=== PATIENT | female | born 2000 | race Hispanic/Latino ===

== ENCOUNTER 2023-04-21 00:40 | Emergency (ER) | payer SELFPAY ==
[2023-04-21 01:03] LABS: #Basophils 0.1 thou/uL (0.0-0.2); #Eosinphils 0.2 thou/uL (0.0-0.7); #Monocytes 0.9 thou/uL (0.11-0.59); #Neutrophils 6.8 thou/uL (1.40-6.50); %Basophils 0.8 % (0.0-1.0); %Eosinophils 1.7 % (0.0-10.0); %Monocytes 8.1 % (0.0-10.0); Hematocrit 42.4 % (36.0-47.0); Hemoglobin 13.7 g/dL (12.0-16.0); Mean Corpuscular HGB CONC 32.3 g/dL (32.0-36.0); Mean Corpuscular Hemoglobin 27.2 pg (27.0-31.0); Mean Corpuscular Volume 84.1 fl (78.0-98.0); Platelet Count 431 10x3/uL (130-400); RBC Distribution Width 13.6 % (11.5-14.5); Red Blood Cell (RBC) Count 5.04 mill/uL (4.20-5.40); White Blood Cell (WBC) Count 11.2 10x3/uL (4.8-10.8)
[2023-04-21] MEDS ORDERED: Ketorolac Tromethamine 30 MG/ML VIAL ONE (01:20)
[2023-04-21] MEDS ORDERED: Ondansetron PF 4 MG/2 ML Vial ONE (01:21)
[2023-04-21 01:25] LABS: ALT (SGPT) 18 U/L (8-55); AST (SGOT) 16 U/L (5-34); Albumin 4.9 g/dL (3.5-5.0); Alkaline Phosphatase 63 U/L (40-110); Anion Gap 14 mmol/L (10-20); BUN (Urea Nitrogen) 7 mg/dL (7.0-18.7); Bilirubin, Total 0.5 mg/dL (0.2-1.2); Calc. Creatinine Clearance 0 mL/min (70-130); Calcium 9.9 mg/dL (7.8-10.44); Carbon Dioxide 22 mmol/L (22-29); Chloride 107 mmol/L (98-107); Estimated GFR 115; Globulin 3.1 g/dL (2.4-3.5); Glucose 88 mg/dL (70-105); Lipase 61 U/L (8-78); Potassium 4.3 mmol/L (3.5-5.1); Sodium 139 mmol/L (136-145)
[2023-04-21 01:28] LABS: BHCG - Serum Negative (NEGATIVE); Pregs Control Background? CLEAR/WHITE (CLR/WHITE); Pregs Control Bar Appear? YES (CONTROL BAR)
[2023-04-21 01:40] LABS: Troponin I Less than 0.010 ng/mL (< 0.028)
[2023-04-21 02:18] LABS: Bacteria/HPF None Seen HPF (None Seen); Bilirubin Negative (Negative); Blood, Urine 1+ (Negative); CAUTI Indications for Culture Dysuria,urgency,freq; Clarity Turbid (Clear); Glucose, Urine (Dipstick) Normal (Negative); Ketone, Urine Negative (Negative); Leukocyte 500 Leu/uL (Negative); Nitrite Negative (Negative); Protein, Urine (Dipstick) Negative (Neg-Trace); Specific Gravity, Urine 1.011 (1.002-1.036); Urobilinogen Normal mg/dL (Less than 2); WBC/HPF Greater than 50 HPF (0-3); pH, Urine 7.5 (5.0-9.0)
[2023-04-21 02:20] LABS: Urine Culture Reflex Yes Yes
[2023-04-21] MEDS ORDERED: cefTRIAXone (ROCEPHIN) 1 GM VIAL ONE (02:36)
== END 2023-04-21 03:23 | disposition home or self-care (01) ==
LOC: ERS 00:40
DX: N39.0 Urinary tract infection, site not specified (principal); K80.20 Calculus of gallbladder without cholecystitis without obstruction
CPT/HCPCS: 76705; 80053; 81001; 83690; 84484; 84703; 85025; 87086; 93005; 96365; 96375; J0696; J1885; J2405

== ENCOUNTER 2023-05-13 17:50 | Inpatient (IN) | payer SELFPAY ==
[2023-05-13 18:40] LABS: Bacteria/HPF 2+ HPF (None Seen); Bilirubin Negative (Negative); Blood, Urine 1+ (Negative); CAUTI Indications for Culture Dysuria,urgency,freq; Clarity Turbid (Clear); Glucose, Urine (Dipstick) Normal (Negative); Ketone, Urine Negative (Negative); Leukocyte 75 Leu/uL (Negative); Nitrite Negative (Negative); Protein, Urine (Dipstick) 20 mg/dL (Neg-Trace); Specific Gravity, Urine 1.017 (1.002-1.036); Urobilinogen Normal mg/dL (Less than 2)
[2023-05-13] MEDS ORDERED: Ondansetron PF 4 MG/2 ML Vial ONE (18:40)
[2023-05-13 18:41] LABS: Urine Culture Reflex Yes Yes
[2023-05-13 19:00] LABS: #Basophils 0.1 thou/uL (0.0-0.2); #Eosinphils 0.1 thou/uL (0.0-0.7); #Monocytes 0.6 thou/uL (0.11-0.59); #Neutrophils 9.7 thou/uL (1.40-6.50); %Basophils 0.6 % (0.0-1.0); %Eosinophils 0.6 % (0.0-10.0); %Lymphocytes 14.1 % (21.0-51.0); %Monocytes 4.7 % (0.0-10.0); %Neutrophils 79.5 % (42.0-75.0); Hematocrit 41.5 % (36.0-47.0); Hemoglobin 13.2 g/dL (12.0-16.0); Mean Corpuscular HGB CONC 31.8 g/dL (32.0-36.0); Mean Corpuscular Hemoglobin 26.8 pg (27.0-31.0); Mean Corpuscular Volume 84.3 fl (78.0-98.0); Platelet Count 460 10x3/uL (130-400); RBC Distribution Width 13.3 % (11.5-14.5); Red Blood Cell (RBC) Count 4.92 mill/uL (4.20-5.40); White Blood Cell (WBC) Count 12.2 10x3/uL (4.8-10.8)
[2023-05-13 19:08] LABS: BHCG - Serum Negative (NEGATIVE); Pregs Control Background? CLEAR/WHITE (CLR/WHITE); Pregs Control Bar Appear? YES (CONTROL BAR)
[2023-05-13 19:28] LABS: ALT (SGPT) 67 U/L (8-55); AST (SGOT) 105 U/L (5-34); Albumin 4.5 g/dL (3.5-5.0); Alkaline Phosphatase 73 U/L (40-110); Anion Gap 11 mmol/L (10-20); BUN (Urea Nitrogen) 9 mg/dL (7.0-18.7); Bilirubin, Total 1.4 mg/dL (0.2-1.2); Calc. Creatinine Clearance 0 mL/min (70-130); Calcium 9.4 mg/dL (7.8-10.44); Carbon Dioxide 26 mmol/L (22-29); Chloride 106 mmol/L (98-107); Estimated GFR 112; Globulin 3.2 g/dL (2.4-3.5); Glucose 82 mg/dL (70-105); Lipase 9 U/L (8-78); Protein, Total 7.7 g/dL (6.0-8.3); Sodium 139 mmol/L (136-145)
[2023-05-13 19:56] LABS: SARS-CoV-2 NAA Rapid Test Not Detected (NotDetected)
[2023-05-13] MEDS ORDERED: Sodium Chloride 0.9% 100 ML ONE (19:59)
[2023-05-13] MEDS ORDERED: Piperacillin/Tazobactam 3.375 GM VIAL ONE (20:00)
[2023-05-13] MEDS ORDERED: Ondansetron PF 4 MG/2 ML Vial IVP PRN (20:15)
[2023-05-13] MEDS ORDERED: Sodium Chloride 0.9% 1,000 ML IV SCH (20:15)
[2023-05-13] MEDS ORDERED: Ondansetron ODT 4 MG TAB SL PRN (20:15)
[2023-05-13] MEDS ORDERED: traMADol HCl 50 MG TAB PO PRN (21:20)
[2023-05-13] MEDS: Morphine 4 MG/ML VIAL SLOW IVP PRN (21:45)
[2023-05-13] MEDS: Lactated Ringer's 1,000 ML IV SCH (21:46)
[2023-05-13] MEDS: Acetaminophen 500 MG TAB PO SCH (21:48)
[2023-05-14] MEDS: traMADol HCl 50 MG TAB PO SCH ×5 (00:38→23:42)
[2023-05-14 02:37] VITALS: BMI 35.9
[2023-05-14] MEDS: Acetaminophen 500 MG TAB PO SCH ×4 (03:39→22:14)
[2023-05-14 05:24] LABS: #Basophils 0.1 thou/uL (0.0-0.2); #Eosinphils 0.2 thou/uL (0.0-0.7); #Monocytes 1.1 thou/uL (0.11-0.59); #Neutrophils 6.4 thou/uL (1.40-6.50); %Basophils 0.8 % (0.0-1.0); %Eosinophils 1.8 % (0.0-10.0); %Lymphocytes 24.4 % (21.0-51.0); %Monocytes 10.8 % (0.0-10.0); %Neutrophils 61.7 % (42.0-75.0); Hematocrit 39.6 % (36.0-47.0); Hemoglobin 12.6 g/dL (12.0-16.0); Mean Corpuscular HGB CONC 31.8 g/dL (32.0-36.0); Mean Platelet Volume 10.2 fL (7.4-10.4); Platelet Count 416 10x3/uL (130-400); RBC Distribution Width 13.3 % (11.5-14.5); Red Blood Cell (RBC) Count 4.66 mill/uL (4.20-5.40); White Blood Cell (WBC) Count 10.4 10x3/uL (4.8-10.8)
[2023-05-14] MEDS: Morphine 4 MG/ML VIAL SLOW IVP PRN ×4 (05:33→20:41)
[2023-05-14 05:48] LABS: ALT (SGPT) 127 U/L (8-55); AST (SGOT) 143 U/L (5-34); Albumin 3.6 g/dL (3.5-5.0); Alkaline Phosphatase 66 U/L (40-110); Anion Gap 13 mmol/L (10-20); BUN (Urea Nitrogen) 7 mg/dL (7.0-18.7); Bilirubin, Direct 0.9 mg/dL (0.1-0.3); Calc. Creatinine Clearance 192 mL/min (70-130); Calcium 8.5 mg/dL (7.8-10.44); Carbon Dioxide 25 mmol/L (22-29); Chloride 106 mmol/L (98-107); Estimated GFR 119; Glucose 82 mg/dL (70-105); Potassium 3.5 mmol/L (3.5-5.1); Protein, Total 6.4 g/dL (6.0-8.3); Sodium 140 mmol/L (136-145)
[2023-05-14] MEDS: Lactated Ringer's 1,000 ML IV SCH (06:37)
[2023-05-14] MEDS ORDERED: Ondansetron PF 4 MG/2 ML Vial ONE (07:15)
[2023-05-14] MEDS ORDERED: Dexamethasone 4 mg/ml Vial ONE (07:15)
[2023-05-14] MEDS ORDERED: Rocuronium Bromide 10 MG/ML (10ML VIAL) ONE ×2 (07:15→07:58)
[2023-05-14] MEDS ORDERED: PROPOFOL 40 ML ONE (07:15)
[2023-05-14] MEDS ORDERED: Fentanyl 250 MCG/5 ML VIAL ONE (07:15)
[2023-05-14] MEDS ORDERED: Lidocaine 2% PF 5 ML VIAL ONE (07:15)
[2023-05-14] MEDS ORDERED: Midazolam HCl 2 mg/2 ml Vial ONE (07:15)
[2023-05-14] MEDS ORDERED: diphenhydrAMINE 50 MG/ML VIAL ONE ×2 (07:43→07:58)
[2023-05-14] MEDS ORDERED: CEFAZOLIN 2 GM VIAL ONE (07:47)
[2023-05-14] MEDS ORDERED: Sodium Chloride 0.9% 100 ML ONE (07:48)
[2023-05-14] MEDS ORDERED: Bupivacaine 0.25% HCL 30 ML VIAL ONE (07:56)
[2023-05-14] MEDS ORDERED: Iopamidol 30 ML ONE (07:56)
[2023-05-14] MEDS ORDERED: EPINEPHrine 1 MG/ML VIAL ONE (07:56)
[2023-05-14] MEDS ORDERED: PROPOFOL 200 MG/20 ML VIAL ONE (07:58)
[2023-05-14] MEDS ORDERED: Lidocaine 1% PF 5 ML VIAL ONE (07:58)
[2023-05-14] MEDS ORDERED: Promethazine HCl 25 MG/ML VIAL IM PRN (09:04)
[2023-05-14] MEDS ORDERED: Ondansetron HCl/PF 4 MG/2 ML Vial IVP PRN (09:04)
[2023-05-14] MEDS ORDERED: HYDROmorphone 2 MG/ML VIAL SLOW IVP PRN (09:04)
[2023-05-14] MEDS ORDERED: Acetaminophen/Codeine 30-300mg Tablet PO PRN ×2 (09:42→13:22)
[2023-05-14] MEDS ORDERED: fentaNYL 50 mcg/mL 1 mL Vial ONE (09:55)
[2023-05-14] MEDS ORDERED: HYDROmorphone 0.5 MG/0.5 ML SYRINGE ONE (10:21)
[2023-05-14] MEDS ORDERED: Piperacillin/Tazobactam 3.375 GM in Sodium Chloride 0.9% 100 ML IVPB SCH (12:00)
[2023-05-14] MEDS: Piperacillin/Tazobactam 3.375 GM in Sodium Chloride 0.9% 100 ML IVPB SCH ×2 (12:40→20:16)
[2023-05-14] MEDS ORDERED: Ondansetron PF 4 MG/2 ML Vial IVP PRN (20:40)
[2023-05-15] MEDS: Morphine 4 MG/ML VIAL SLOW IVP PRN ×3 (01:10→10:17)
[2023-05-15 03:47] LABS: #Eosinphils 0.1 thou/uL (0.0-0.7); #Monocytes 1.4 thou/uL (0.11-0.59); #Neutrophils 14.3 thou/uL (1.40-6.50); %Basophils 0.2 % (0.0-1.0); %Eosinophils 0.5 % (0.0-10.0); %Lymphocytes 12.7 % (21.0-51.0); %Monocytes 7.7 % (0.0-10.0); %Neutrophils 78.6 % (42.0-75.0); Hematocrit 37.7 % (36.0-47.0); Mean Corpuscular HGB CONC 31.8 g/dL (32.0-36.0); Mean Corpuscular Hemoglobin 26.8 pg (27.0-31.0); Mean Corpuscular Volume 84.2 fl (78.0-98.0); Mean Platelet Volume 10.1 fL (7.4-10.4); Platelet Count 413 10x3/uL (130-400); RBC Distribution Width 13.4 % (11.5-14.5); Red Blood Cell (RBC) Count 4.48 mill/uL (4.20-5.40); White Blood Cell (WBC) Count 18.1 10x3/uL (4.8-10.8)
[2023-05-15 04:14] LABS: ALT (SGPT) 170 U/L (8-55); AST (SGOT) 92 U/L (5-34); Albumin 3.9 g/dL (3.5-5.0); Alkaline Phosphatase 75 U/L (40-110); Anion Gap 11 mmol/L (10-20); BUN (Urea Nitrogen) 5 mg/dL (7.0-18.7); Bilirubin, Direct 0.5 mg/dL (0.1-0.3); Bilirubin, Total 1.5 mg/dL (0.2-1.2); Calc. Creatinine Clearance 180 mL/min (70-130); Calcium 9.1 mg/dL (7.8-10.44); Carbon Dioxide 25 mmol/L (22-29); Chloride 105 mmol/L (98-107); Estimated GFR 110; Globulin 2.9 g/dL (2.4-3.5); Glucose 90 mg/dL (70-105); Potassium 3.8 mmol/L (3.5-5.1); Protein, Total 6.8 g/dL (6.0-8.3); Sodium 137 mmol/L (136-145)
[2023-05-15] MEDS: Piperacillin/Tazobactam 3.375 GM in Sodium Chloride 0.9% 100 ML IVPB SCH (05:22)
[2023-05-15] MEDS: Acetaminophen 500 MG TAB PO SCH ×2 (05:22→10:18)
[2023-05-15] MEDS: traMADol HCl 50 MG TAB PO SCH (06:45)
[2023-05-15 08:32] VITALS: BP 110/70; TEMP 98.3
[2023-05-15] MEDS ORDERED: Acetaminophen/Codeine 30-300mg Tablet PO PRN (10:44)
[2023-05-15] MEDS ORDERED: Acetaminophen 325 MG TAB PO SCH (12:00)
== END 2023-05-15 12:30 | disposition home or self-care (01) | DRG 418 ==
LOC: ERS 17:50 → MSONC 19:57 → OBSVTOIN 05-14 16:45
PROVIDERS: ADMIT Student in an Organized Health Care Education/Training Program; ATTEND Student in an Organized Health Care Education/Training Program
PROC: 0FT44ZZ Resection of Gallbladder, Percutaneous Endoscopic Approach (ICD-10-PCS; principal; 2023-05-14)
PROC: BF101ZZ Fluoroscopy of Bile Ducts using Low Osmolar Contrast (ICD-10-PCS; 2023-05-14)
DX: K80.00 Calculus of gallbladder with acute cholecystitis without obstruction (principal); R65.10 Systemic inflammatory response syndrome (SIRS) of non-infectious origin without acute organ dysfunction; R11.0 Nausea; Z11.52 Encounter for screening for COVID-19
CPT/HCPCS: 36415; 47532; 76705; 80048; 80053; 80076; 81001; 83690; 84703; 85025; 86850; 86900; 86901; 87086; 88304; 96361; 96365; 96375; 96376; C1889; G0378; J0171; J1100; J1170; J1200; J2001; J2250; J2270; J2405; J2543; J2704; J3010; J3490; J7120; Q0162; Q9967; S0020

== ENCOUNTER 2023-07-17 11:28 | Emergency (ER) | payer SELFPAY ==
[2023-07-17 12:20] LABS: #Basophils 0.1 thou/uL (0.0-0.2); #Eosinphils 0.4 thou/uL (0.0-0.7); #Monocytes 0.8 thou/uL (0.11-0.59); #Neutrophils 12.8 thou/uL (1.40-6.50); %Basophils 0.7 % (0.0-1.0); %Eosinophils 2.2 % (0.0-10.0); %Monocytes 4.9 % (0.0-10.0); %Neutrophils 77.8 % (42.0-75.0); Hematocrit 39.3 % (36.0-47.0); Hemoglobin 12.9 g/dL (12.0-16.0); Mean Corpuscular HGB CONC 32.8 g/dL (32.0-36.0); Mean Corpuscular Hemoglobin 27.4 pg (27.0-31.0); Mean Corpuscular Volume 83.4 fl (78.0-98.0); Mean Platelet Volume 10.1 fL (7.4-10.4); Platelet Count 464 10x3/uL (130-400); RBC Distribution Width 14.3 % (11.5-14.5); Red Blood Cell (RBC) Count 4.71 mill/uL (4.20-5.40); White Blood Cell (WBC) Count 16.5 10x3/uL (4.8-10.8)
[2023-07-17 12:43] LABS: ALT (SGPT) 37 U/L (8-55); AST (SGOT) 26 U/L (5-34); Albumin 4.5 g/dL (3.5-5.0); Alkaline Phosphatase 67 U/L (40-110); Anion Gap 14 mmol/L (10-20); BUN (Urea Nitrogen) 5 mg/dL (7.0-18.7); Bilirubin, Total 0.9 mg/dL (0.2-1.2); Calc. Creatinine Clearance 0 mL/min (70-130); Calcium 9.5 mg/dL (7.8-10.44); Carbon Dioxide 21 mmol/L (22-29); Chloride 102 mmol/L (98-107); Estimated GFR 125; Globulin 3.3 g/dL (2.4-3.5); Glucose 86 mg/dL (70-105); Potassium 3.8 mmol/L (3.5-5.1); Protein, Total 7.8 g/dL (6.0-8.3); Sodium 133 mmol/L (136-145)
== END 2023-07-17 14:21 | disposition home or self-care (01) ==
LOC: ERS 11:28
DX: O20.0 Threatened abortion (principal); Z3A.01 Less than 8 weeks gestation of pregnancy
CPT/HCPCS: 36415; 76856; 80053; 84702; 85025; 86850; 86900; 86901

== ENCOUNTER 2023-07-19 11:20 | Emergency (ER) | payer SELFPAY | END 2023-07-19 13:04 | disposition home or self-care (01) | LOC: ERS 11:20 | DX: O03.9 Complete or unspecified spontaneous abortion without complication (principal) | CPT/HCPCS: 36415; 84702; 99284 ==